=== PATIENT | female | born 1955 | race Caucasian/White ===

== ENCOUNTER 2022-07-21 16:35 | Emergency (ER) | payer BC, MEDICAID ==
[~2022-07-21] VITALS: Ht 167.6 cm; Wt 83.7 kg
[2022-07-21] MEDS ORDERED: morphine 4 MG/ML inj SYRINge IM ONE (18:15)
[2022-07-21] MEDS ORDERED: morphine 2 MG/ML inj. syringe IM ONE ×2 (18:15→19:35)
[2022-07-21 18:36] VITALS: BP 138/86
== END 2022-07-21 19:57 | disposition home or self-care (01) ==
LOC: ER 16:38
DX: M25.531 Pain in right wrist (principal); R51.9 Headache, unspecified; M54.59 Other low back pain; G89.29 Other chronic pain; Z88.6 Allergy status to analgesic agent; Z79.899 Other long term (current) drug therapy; Z88.8 Allergy status to other drugs, medicaments and biological substances; W19.XXXA Unspecified fall, initial encounter; Y93.89 Activity, other specified; Y92.89 Other specified places as the place of occurrence of the external cause; Y99.8 Other external cause status
CPT/HCPCS: 29260; 72100; 72131; 73080; 73110; 96372; 99284; J2270; L3908

== ENCOUNTER 2024-03-19 00:15 | Emergency (ER) | payer OTHER, MEDICAID ==
[~2024-03-19] VITALS: Ht 167.6 cm; Wt 64.3 kg
[2024-03-19 00:41] VITALS: TEMP 98.2
[2024-03-19 01:25] LABS: BILIRUBIN,URINE NEGATIVE (Neg); CLARITY,URINE SLIGHTLY CLOUDY (Clear); COLOR,URINE YELLOW (Yellow); GLUCOSE, URINE NEGATIVE (Neg); KETONES,URINE NEGATIVE (Neg); LEUKOCYTE ESTERASE ,URINE SMALL (Neg); NITRITES, URINE NEGATIVE (Neg); OCCULT BLOOD,URINE NEGATIVE (Neg); PH,URINE 5.5 (4.8-8.0); PROTEIN,URINE NEGATIVE (Neg); UROBILINOGEN,URINE 0.2 E.U/dL (0.2-1.0)
[2024-03-19 01:32] LABS: UA COLLECTION TYPE OTHER
[2024-03-19 01:38] LABS: BACTERIA,URINE FEW /HPF (Neg); MUCUS STRANDS FEW /LPF (Neg); RENAL CELLS, URINE FEW /HPF; SQUAMOUS EPITHELIAL CELL,UR MANY /LPF (FEW); TRANSITIONAL EPI CELLS,URINE FEW /HPF
[2024-03-19 01:43] LABS: URINE AMPHETAMINE SCREEN NEGATIVE (Neg); URINE BARBITUATE SCREEN NEGATIVE (Neg); URINE BENZODIAZEPINES SCREEN NEGATIVE (Neg); URINE CANNABINOID SCREEN POSITIVE (Neg); URINE COCAINE SCREEN NEGATIVE (Neg); URINE METHADONE SCREEN NEGATIVE (Neg); URINE OPIATE SCREEN NEGATIVE (Neg); URINE PHENCYCLIDINE SCREEN NEGATIVE (Neg)
[2024-03-19 03:39] LABS: ALBUMIN 2.9 G/DL (3.4-5.0); ANION GAP 7 (8-16); BLOOD UREA NITROGEN 30 MG/DL (7-18); BUN/CREATININE RATIO 34.1 (10.0-20.0); CALCIUM 9.1 MG/DL (8.5-10.1); CHLORIDE 103 MMOL/L (99-107); CREATININE 0.88 MG/DL (0.40-0.90); ETHANOL < 10 MG/DL (<10); GLUCOSE 95 MG/DL (70-104); SODIUM 136 MMOL/L (135-145); THYROID STIMULATING HORMONE 3.05 ulU/ml (0.34-4.50); TOTAL CARBON DIOXIDE 26.4 MMOL/L (24-32); eCRCL 56 ML/MIN; eGFR 64 ML/MIN
[2024-03-19 03:40] LABS: POTASSIUM 5.3 MMOL/L (3.5-5.1)
[2024-03-19] MEDS ORDERED: CEPH-585 PO (07:21)
[2024-03-19 07:32] VITALS: PULSE 94; RESP 15
[2024-03-19] MEDS: LIDOcaine 2% jelly 6ml syringe ***for topical use only MM ONE (08:10)
[2024-03-19 08:54] VITALS: BP 110/62; O2SAT 96
== END 2024-03-19 09:00 | disposition home or self-care (01) ==
LOC: ER 00:16
DX: R53.1 Weakness (principal); N39.0 Urinary tract infection, site not specified; M19.90 Unspecified osteoarthritis, unspecified site; G89.29 Other chronic pain; M54.9 Dorsalgia, unspecified; Z98.890 Other specified postprocedural states; Z59.00 Homelessness unspecified; Z88.8 Allergy status to other drugs, medicaments and biological substances; Z79.2 Long term (current) use of antibiotics
CPT/HCPCS: 36415; 80048; 80305; 80320; 81001; 84443; 99285; A6258